=== PATIENT | male | born 1975 | race Caucasian/White ===

== ENCOUNTER 2017-03-15 10:53 | Emergency (ER) | payer OTHER ==
[~2017-03-15] VITALS: Ht 185.4 cm; Wt 113.4 kg
[2017-03-15 11:04] VITALS: BP 123/78
--- NOTE | 2017-03-15 11:35 | RADIOLOGY REPORT ---
EXAMINATION: LEFT FOOT 3 VIEWS CLINICAL INFORMATION: Left foot pain. COMPARISON: None. TECHNIQUE: AP, lateral, oblique views of the left foot were obtained. FINDINGS: There are no fractures or dislocations. There is no significant soft tissue swelling. No ankle joint effusion is identified. IMPRESSION: Unremarkable left foot radiographs.
--- NOTE | 2017-03-15 11:40 | ED UPPER/LOWER EXTREMITY COMPL ---
History of Present Illness General Chief Complaint: Foot or Ankle Injury Stated Complaint: L FOOT INJURY Source: patient Exam Limitations: no limitations Vital Signs & Intake/Output Vital Signs & Intake/Output Vital Signs Date Time Temp Pulse Resp B/P B/P Pulse O2 O2 Flow FiO2 Mean Ox Delivery Rate 03/15 1104 98.6 94 18 123/78 95 Room Air Allergies Coded Allergies: No Known Allergies (03/15/17) Reconcile Medications No Known Home Medications Triage Note: 42 YO MAL TO ER FOR L FOOT PAIN. STATES HE WENT SKYDIVING YESTERDAY AND LANDED THE WRONG WAY. NOTED WITH SWELLING TO L FOOT. Triage Nurses Notes Reviewed? yes Onset: Abrupt Duration: constant Timing: recent history Severity: severe Severity Numbers: 7 HPI: Patient is a 42-year-old male who presents to emergency room stating that yesterday he was dayna diving which is not new for him where he landed abruptly and patient then subsequently began running forward where he lost his balance and had acute onset of pain to left foot since. Patient denies any ankle pain denies any knee pain. Patient has not taken any medications for symptoms. Denies any laceration. Patient does have swelling to the foot pain is located to the top of his foot. Patient states that ambulation makes worse (JULIUS VILLEGAS) Past History Travel History Traveled to [place] past 21 day No Medical History Any Pertinent Medical History? none Neurological: NONE EENT: NONE Cardiovascular: NONE Respiratory: NONE Gastrointestinal: NONE Hepatic: NONE Renal: NONE Musculoskeletal: NONE Psychiatric: NONE Endocrine: NONE Blood Disorders: NONE Cancer(s): NONE GERIATRIC PHYSICAL THERAPIST/Reproductive: NONE Surgical History Surgical History: non-contributory Psychosocial History What is your primary language [place] Tobacco Use: Never used Family History Hx Contributory? No (JULIUS VILLEGAS) Review of Systems Review of Systems Constitutional: Reports: no symptoms. EENTM: Reports: no symptoms. Respiratory: Reports: no symptoms. Cardiovascular: Reports: no symptoms. Gastrointestinal/Abdominal: Reports: no symptoms. Genitourinary: Reports: no symptoms. Musculoskeletal: Reports: see HPI. Skin: Reports: no symptoms. Neurological/Psychological: Reports: no symptoms. Hematologic/Endocrine: Reports: no symptoms. Immunological: Reports: no symptoms. All Other Systems: Reviewed and Negative (JULIUS VILLEGAS) Physical Exam Physical Exam General Appearance: no apparent distress, alert Neurologic/Tendon: normal sensation, normal motor functions, normal tendon functions, responds to pain, no evidence tendon injury, no pulse deficit Skin: intact, normal color, warm/dry Comments: Well-developed well-nourished no apparent distress. HEENT: Atraumatic, extraocular motion intact Neck: Supple, no lymphadenopathy Back: Nontender Respiratory: No respiratory distress Extremities: Left ankle nontender normal inspection full active range of motion Neuro: Alert and oriented x3 Psych: Mood affect normal, normal memory normal judgment. Diagram Feet Top 1) Noted mild swelling and generalized point tenderness pedal pulse +2 dermatomes intact Mild tenderness noted to navicular process No tenderness to base of the fifth metatarsal phalanx nontender (JULIUS VILLEGAS) Progress Differential Diagnosis: arterial insufficiency, compartment syndrome, contusion, dislocation, DVT, fracture, gout, septic arthritis, sprain, tendon injury Plan of Care: Orders Procedure Date/time Status Durable Medical Equipment 03/15 1151 Active Current Medications Sig/Buzz Start time Last Medication Dose Stop Time Status Admin Ibuprofen 600 MG ONCE ONE 03/15 1200 CAN (Motrin) 03/15 1201 X-rays were unremarkable for osseous injury. Patient most likely has left midfoot sprain Jamey wrap was placed to left foot pre-and post-neurovascular was intact. (JULIUS VILLEGAS) Diagnostic Imaging: Viewed by Me: Radiology Read. Radiology Impression: no fracture Comments: PATIENT: VLAD RODRIGUEZ PRESENT AGE: 42 PATIENT ACCOUNT NO: [id number] : 76 LOCATION: [facility] ORDERING PHYSICIAN: JULIUS RAM SERVICE DATE: 03/15/17 EXAM TYPE: RAD - XRY-FOOT COMPLETE, LEFT EXAMINATION: LEFT FOOT 3 VIEWS CLINICAL INFORMATION: Left foot pain. COMPARISON: None. TECHNIQUE: AP, lateral, oblique views of the left foot were obtained. FINDINGS: There are no fractures or dislocations. There is no significant soft tissue swelling. No ankle joint effusion is identified. IMPRESSION: Unremarkable left foot radiographs. DICTATED BY: JUANCARLOS DINH MD DATE/TIME DICTATED:03/15/171130 COAGULATING DRYING SUPERVISOR:DENIZ (JULIUS VILLEGAS) Departure Departure Disposition: HOME OR SELF CARE Condition: Stable Clinical Impression Primary Impression: Left foot pain Secondary Impressions: Sprain of left foot Referrals: ABDULAZIZ VALENTE,ALBINO (PCP/Family) CHARLES GANNON MD Additional Instructions: As discussed begin icing the area directly 20 minutes every 2 hours for pain and swelling. Begin to elevate THE foot. Begin using the Jamey wrap for swelling. Begin [id number] ibuprofen for pain and inflammation. Begin using the crutches until YOU can walk without pain. If no better in 5 days follow-up with your established orthopedic . If symptoms worsen return to emergency room Departure Forms: Customer Survey General Discharge Information Prescriptions: Current Visit Scripts No Known Home Medications (JULIUS VILLEGAS) PA/TRAFFIC WORKER Co-Sign Statement Statement: ED Attending supervision documentation- [] I saw and evaluated the patient. I have also reviewed all the pertinent lab results and diagnostic results. I agree with the findings and the plan of care as documented in the PA's/TRAFFIC WORKER's documentation. [X] I have reviewed the ED Record and agree with the PA's/TRAFFIC WORKER's documentation. [] Additions or exceptions (if any) to the PAs/TRAFFIC WORKER's note and plan are summarized below: [] (DAVON HERNANDEZ DO)
== END 2017-03-15 12:02 ==
LOC: ERH 10:53
DX: S93.602A Unspecified sprain of left foot, initial encounter (principal); M79.672 Pain in left foot; X50.9XXA Other and unspecified overexertion or strenuous movements or postures, initial encounter; Y93.02 Activity, running; Y92.9 Unspecified place or not applicable
CPT/HCPCS: 73630-LT